=== PATIENT | female | born 1995 | race Caucasian/White ===

== ENCOUNTER 2020-06-12 13:28 | Emergency (ER) | payer BC, SELFPAY ==
[2020-06-12 13:41] VITALS: BP 119/80; PULSE 81; RESP 18; TEMP 36.9; O2SAT 98; BMI 21.9
--- NOTE | 2020-06-12 14:11 | XR_ITS ---
EXAMINATION: XR CHEST CLINICAL INFORMATION: Left lower rib pain. COMPARISON: None TECHNIQUE: 2 views of the chest were obtained. FINDINGS: No significant abnormality is noted involving the heart, lungs, mediastinum, bony thorax or soft tissues. XR/XR chest 2V IMPRESSION: Unremarkable chest examination.
--- NOTE | 2020-06-12 14:11 | ECG_ITS ---
Test Reason : CHEST WALL PAIN Blood Pressure : / mmHG Vent. Rate : 060 BPM Atrial Rate : 060 BPM P-R Int : 146 ms QRS Dur : 084 ms QT Int : 390 ms P-R-T Axes : 064 073 051 degrees QTc Int : 390 ms Normal sinus rhythm Normal ECG No previous ECGs available Referred By: Yahaira Márquez Electronically Signed By:JOCELYNN HAQ
[2020-06-12] MEDS: Magnesium Hydrox/Alum Hydrox 30 ML ORAL.SUSP PO (14:28)
[2020-06-12] MEDS: Famotidine 20 MG TABLET PO (14:28)
[2020-06-12 14:32] LABS: MANUAL DIFF FLAG NO
[2020-06-12 14:33] LABS: Glucose Urine UA NEG (NEG); Leukocyte Esterase Urine NEG (NEG); Nitrite Urine NEG (NEG); PH 5.5 (5.0-8.0); Specific Gravity - Urine >= 1.030 (1.005-1.025); Urine Blood 2+ (NEG); Urine Ketones NEG (NEG); Urine Protein NEG (NEG-TRACE)
[2020-06-12 14:34] LABS: Appearance Urine CLEAR; Color Urine YELLOW
[2020-06-12 14:34] LABS: Basophils Percent Auto 0.5 % (0-2); Eosinophils Percent Auto 0.5 % (0-4); Hematocrit 40.4 % (37-47); Hemoglobin 13.4 g/dl (12.0-16.0); Imm Gran Abs Auto 0.02 X10*3/uL (0.00-0.03); Imm Gran Pct Auto 0.3 % (0.0-0.4); Lymphocytes Absolute Auto 1.6 X10*3/uL (1.2-4.9); Lymphocytes Percent Auto 25.2 % (20-40); Mean Corpuscular HGB Conc 33.2 g/dl (31.0-35.0); Mean Corpuscular Volume 90.4 fL (80-98); Mean Platelet Volume 11.5 fL (9.4-12.3); Monocytes Absolute Auto 0.4 X10*3/uL (0.1-1.2); Monocytes Percent Auto 6.1 % (2-11); Neutrophils Absolute Auto 4.2 X10*3/uL (2.0-8.3); Neutrophils Percent Auto 67.4 % (45-73); Platelet Count 184 X10*3/uL (160-400); Red Blood Count 4.47 X10*6/uL (4.20-5.50); Red Cell Distribution Width 12.4 % (11.0-16.0); White Blood Count 6.2 X10*3/uL (4.8-10.8)
[2020-06-12 14:40] LABS: Prothrombin Time 12.1 SEC (10.8-13.0)
[2020-06-12 14:41] LABS: Mucus Urine 1+ /LPF; Squamous Epithelial Cell Urine 1+ /LPF; WBC Urine 0-2 /HPF (0-4)
[2020-06-12 14:44] LABS: D Dimer < 200 NG/ML
--- NOTE | 2020-06-12 14:51 | ED_ITS ---
HPI - General Adult General Chief complaint: General Medical Stated complaint: abd pain Time Seen by Provider: 06/12/20 14:00 Source: patient Mode of arrival: ambulatory History of Present Illness HPI narrative: 25-year-old Female with a past medical history of asthma presenting to the ED complaining of upper abdominal/LUQ abdominal pain, severe nausea, and asthma exacerbations over the past few days. Admits pain worse with eating and deep breathing. Reports chronic cough with asthma. Denies fever, shortness of breath, chest pain, vomiting/diarrhea/constipation, dysuria/hematuria, recent travel, oral OCPs, cigarette smoking Onset (ago): day(s) Related Data Previous Rx's Medication Instructions Recorded omeprazole 20 mg PO DAILY 10 Days #10 cap 06/12/20 ondansetron HCl [Zofran] 4 mg PO Q8H PRN #10 tab 06/12/20 Allergies Allergy/AdvReac Type Severity Reaction Status Date / Time No Known Allergies Allergy Unverified 02/10/20 19:52 [No Known Allergies*] Review of Systems Review of Systems: Constitutional: No Weight loss, No Fever, No Chills Cardiovascular: + chest wall pain, No SOB Respiratory: + Cough, No Sputum, No Wheezing Gastrointestinal: +Nausea, No Vomiting, No Diarrhea, No Constipation, + Abdo rasheeda pain Genitourinary:, No Dysuria, No Urinary Frequency, No Hematuria, No Flank Pain Musculoskeletal: No joint pain, No Myalgias, No Joint Swelling Skin: No Skin Lesions, No rash Yes all other systems are reviewed and are negative [facility] Past Medical History Attestation statement: The following information was validated with the patient. Medical History (Updated 06/12/20 @ 15:18 by BELIA Ibanez) ACL (anterior cruciate ligament) tear Asthma Ulna fracture Social History Social History Advance Directives: No Advance Directives Information Provided: No Physical Exam Vital Signs: Vital Signs: Last Vital Signs Temp 98.5 F 06/12/20 13:41 Pulse 81 06/12/20 13:41 Resp 18 06/12/20 13:41 BP 119/80 06/12/20 13:41 Pulse Ox 98 06/12/20 13:41 Body Mass Index 21.9 Const: General: cooperative and healthy appearing Orientation/consciousness: patient oriented x3 Limitations: no limitations HENMT: Head: Yes normal to inspection Ears: hearing grossly normal bilaterally General nose exam: Normal external nose present Face and sinus: Yes normal facial exam Eyes: General: appearance normal, both eyes and all related structures EOM: EOMs intact bilaterally Neck: Neck: Yes normal visual inspection Chest: Other: + left lower anterior lower rib tenderness Chest palpation & inspection: normal inspection of the chest and no crepitus Resp: Effort & Inspection: normal respiratory effort Auscultation: clear to auscultation bilaterally, no rales, no rhonchi and no wheezes Cardio: Rate: regular rate Heart sounds: S1 normal heart sound present and S2 normal heart sound present GI: Inspection: Yes normal to inspection Palpation (GI): Soft to palpation, nontender, no guarding and not rigid : General: Yes no CVA tenderness Back/Spine/Pelvis: Back: no CVA tenderness Skin: Rashes: no rashes Wounds: no wounds Neuro: General: patient oriented x3 Gait exam (Neuro): Normal gait present Extrem: Other: No LE edema or calf tenderness General: Yes normal to inspection Course Course Course Narrative: * No leukocytosis, D-dimer negative, CXR unremarkable * 1513- labs otherwise unremarkable, UA not infected but with 2+ blood patient is currently on menstruation. Results discussed with patient including worrisome signs and symptoms and strict return precautions. Patient is to follow-up with her PCP and GI. She verbalized understanding and feels safe for discharge home Medical Decision Making MDM Narrative Medical decision making narrative: 25-year-old Female with a past medical history of asthma presenting to the ED complaining of upper abdominal/LUQ abdominal pain, severe nausea, and asthma exacerbations over the past few days. On exam VS chest, NAD/nontoxic appearing, lungs CTA, left lower rib tenderness elicited at, abdomen soft/nontender, no CVAT. Concern for GERD/gastritis vs pancreatitis vs pneumonia/PE. Lower concern for cholecystitis/cholelithiasis w/o ttp on exam, appendicitis/ diverticulitis or renal stone Plan: EKG, labs, CXR, UA, symptomatic therapy, re-evaluate Lab Data Result diagrams: 06/12/20 14:25 06/12/20 14:25 Labs: Lab Results 06/12/20 06/12/20 06/12/20 Range/Units 14:20 14:25 14:25 WBC 6.2 (4.8-10.8) X10*3/uL RBC 4.47 (4.20-5.50) X10*6/uL Hgb 13.4 (12.0-16.0) g/dl Hct 40.4 (37-47) % MCV 90.4 (80-98) fL MCH 30.0 (27.0-33.0) pg MCHC 33.2 (31.0-35.0) g/dl RDW 12.4 (11.0-16.0) % Plt Count 184 (160-400) X10*3/uL MPV 11.5 (9.4-12.3) fL Immature Gran % (Auto) 0.3 (0.0-0.4) % Neut % (Auto) 67.4 (45-73) % Lymph % (Auto) 25.2 (20-40) % [place] % (Auto) 6.1 (2-11) % Eos % (Auto) 0.5 (0-4) % Baso % (Auto) 0.5 (0-2) % Lymph # (Auto) 1.6 (1.2-4.9) X10*3/uL [place] # (Auto) 0.4 (0.1-1.2) X10*3/uL Eos # (Auto) 0.0 (0.0-0.4) X10*3/uL Baso # (Auto) 0.0 (0.0-0.2) X10*3/uL Abs Immat Gran (auto) 0.02 (0.00-0.03) X10*3/uL Absolute Neuts (auto) 4.2 (2.0-8.3) X10*3/uL Absolute Nucleated RBC 0.000 (0.0-0.012) X10*3/uL Nucleated RBC % (auto) 0.0 (0.0-0.2) /100WBC PT 12.1 (10.8-13.0) SEC INR 1.0 (0.9-1.1) APTT 29.0 (24.1-38.0) SEC D-Dimer < 200 NG/ML Sodium (135-145) mmol/L Potassium (3.3-5.1) mmol/l Chloride (96-108) mmol/L Carbon Dioxide (22-29) mmol/L Anion Gap (12-20) BUN (9-16) mg/dL Creatinine (0.5-1.4) mg/dL Estim Creat Clear Calc Estimated GFR Random Glucose (60-115) mg/dL Calcium (8.4-10.2) mg/dL Total Bilirubin (0.0-1.0) mg/dL Direct Bilirubin (0.0-0.5) mg/dL AST (5-31) U/L ALT (0-31) U/L Alkaline Phosphatase (39-117) U/L B-Natriuretic Peptide (<100) pg/mL Total Protein (6.5-8.0) g/dL Albumin (3.5-5.0) g/dL Lipase (8-78) U/L Urine Color YELLOW Urine Appearance CLEAR Urine pH 5.5 (5.0-8.0) Ur Specific [place] >= 1.030 H (1.005-1.025) Urine Protein NEG (NEG-TRACE) MG/DL Urine Glucose (UA) NEG (NEG) MG/DL Urine Ketones NEG (NEG) MG/DL Urine Blood 2+ H (NEG) Urine Nitrite NEG (NEG) Ur Leukocyte Esterase NEG (NEG) Urine RBC 1-4 (0) /HPF Urine WBC 0-2 (0-4) /HPF Ur Squamous Epith Cells 1+ /LPF Urine Bacteria NONE /LPF Urine Mucus 1+ /LPF 06/12/20 06/12/20 Range/Units 14:25 14:25 WBC (4.8-10.8) X10*3/uL RBC (4.20-5.50) X10*6/uL Hgb (12.0-16.0) g/dl Hct (37-47) % MCV (80-98) fL MCH (27.0-33.0) pg MCHC (31.0-35.0) g/dl RDW (11.0-16.0) % Plt Count (160-400) X10*3/uL MPV (9.4-12.3) fL Immature Gran % (Auto) (0.0-0.4) % Neut % (Auto) (45-73) % Lymph % (Auto) (20-40) % [place] % (Auto) (2-11) % Eos % (Auto) (0-4) % Baso % (Auto) (0-2) % Lymph # (Auto) (1.2-4.9) X10*3/uL [place] # (Auto) (0.1-1.2) X10*3/uL Eos # (Auto) (0.0-0.4) X10*3/uL Baso # (Auto) (0.0-0.2) X10*3/uL Abs Immat Gran (auto) (0.00-0.03) X10*3/uL Absolute Neuts (auto) (2.0-8.3) X10*3/uL Absolute Nucleated RBC (0.0-0.012) X10*3/uL Nucleated RBC % (auto) (0.0-0.2) /100WBC PT (10.8-13.0) SEC INR (0.9-1.1) APTT (24.1-38.0) SEC D-Dimer NG/ML Sodium 140 (135-145) mmol/L Potassium 3.7 (3.3-5.1) mmol/l Chloride 106 (96-108) mmol/L Carbon Dioxide 25 (22-29) mmol/L Anion Gap 13 (12-20) BUN 12 (9-16) mg/dL Creatinine 0.69 (0.5-1.4) mg/dL Estim Creat Clear Calc 119.1 Estimated GFR > 60 Random Glucose 86 (60-115) mg/dL Calcium 8.7 (8.4-10.2) mg/dL Total Bilirubin 0.5 (0.0-1.0) mg/dL Direct Bilirubin 0.3 (0.0-0.5) mg/dL AST 19 (5-31) U/L ALT 20 (0-31) U/L Alkaline Phosphatase 45 (39-117) U/L B-Natriuretic Peptide 31 (<100) pg/mL Total Protein 7.0 (6.5-8.0) g/dL Albumin 4.3 (3.5-5.0) g/dL Lipase 13 (8-78) U/L Urine Color Urine Appearance Urine pH (5.0-8.0) Ur Specific [place] (1.005-1.025) Urine Protein (NEG-TRACE) MG/DL Urine Glucose (UA) (NEG) MG/DL Urine Ketones (NEG) MG/DL Urine Blood (NEG) Urine Nitrite (NEG) Ur Leukocyte Esterase (NEG) Urine RBC (0) /HPF Urine WBC (0-4) /HPF Ur Squamous Epith Cells /LPF Urine Bacteria /LPF Urine Mucus /LPF ECG Data Attestation: I personally reviewed and interpreted this ECG as follows: Interpretation: EKG normal sinus rhythm with a rate of 60. QTc 390. No ischemic changes. No STEMI Discharge Plan Discharge Clinical Impression: Nausea, Acute upper abdominal pain Patient Disposition: Home, Self-Care Instructions: Abdominal Pain (ED) Additional Instructions: Your blood work and chest x-ray were reassuring today in the emergency department Camilo is in antinausea medication, take as needed Omeprazole will help with acid in her stomach You should follow-up with a GI doctor and her primary care doctor Make sure you are staying hydrated at If her symptoms persist or worsen, your unable to eat or drink, developed chest pain, or shortness of breath return to the ED Prescriptions: New ondansetron HCl [Zofran] 4 mg tablet 4 mg PO Q8H PRN (Reason: nausea and vomiting) Qty: 10 RF: 0 omeprazole 20 mg capsule,delayed release(DR/EC) 20 mg PO DAILY 10 Days Qty: 10 RF: 0 Referrals: Pito Hood MD [Physician] - 1 week
[2020-06-12 15:02] LABS: Alanine Aminotransferase 20 U/L (0-31); Albumin Level 4.3 g/dL (3.5-5.0); Alkaline Phosphatase 45 U/L (39-117); Anion Gap 13 (12-20); Aspartate Amino Transferase 19 U/L (5-31); Bilirubin Direct 0.3 mg/dL (0.0-0.5); Bilirubin Total 0.5 mg/dL (0.0-1.0); Blood Urea Nitrogen 12 mg/dL (9-16); Calcium 8.7 mg/dL (8.4-10.2); Carbon Dioxide 25 mmol/L (22-29); Chloride 106 mmol/L (96-108); Creatinine Clr Calc Pharmacy 119.1; Estimated Glomerular Filt Rate > 60; Glucose Random 86 mg/dL (60-115); Lipase 13 U/L (8-78); Potassium 3.7 mmol/l (3.3-5.1); Sodium 140 mmol/L (135-145)
[2020-06-12 15:08] LABS: B Type Natriuretic Peptide 31 pg/mL (<100)
== END 2020-06-12 15:28 | disposition home or self-care (01) ==
PROVIDERS: Physician Assistant; Emergency Provider Emergency Medicine; PCP Physician Assistant
DX: R10.12 Left upper quadrant pain (principal); R11.0 Nausea
CPT/HCPCS: 36415; 71046; 80048; 80076; 81001; 83690; 83880; 85025; 85379; 85610; 85730; 93005; 99283

== ENCOUNTER → 2020-06-21 08:10 | Outpatient (BNVA) | payer BC, SELFPAY | PROVIDERS: PCP Physician Assistant; Visit Provider Physician Assistant | DX: Z76.89 Persons encountering health services in other specified circumstances (principal) ==